=== PATIENT | male | born 1980 | race Hispanic/Latino ===

== ENCOUNTER → 2019-01-02 | Outpatient (CLI) | payer BC | END | disposition home or self-care (01) | LOC: RAH 11:23 | PROVIDERS: ATTEND Internal Medicine Gastroenterology | DX: R10.13 Epigastric pain (principal); R11.2 Nausea with vomiting, unspecified; R14.0 Abdominal distension (gaseous) | CPT/HCPCS: 78264; A9541 ==

== ENCOUNTER → 2019-02-06 | Outpatient (CLI) | payer BC | END | disposition home or self-care (01) | LOC: RAH 08:50 | PROVIDERS: ATTEND Internal Medicine Gastroenterology | DX: K21.9 Gastro-esophageal reflux disease without esophagitis (principal) | CPT/HCPCS: 74240 ==

== ENCOUNTER 2020-07-15 23:10 | Inpatient (IN) | payer BC, OTHER ==
[~2020-07-15] VITALS: Ht 177.2 cm; Wt 123.4 kg
[2020-07-16 00:51] LABS: BASOPHILS % (AUTO) 0.1 % (0.0-5.0); EOSINOPHILS % (AUTO) 1.7 % (0.0-8.0); HEMATOCRIT 45.8 % (42-54); LYMPHOCYTES % (AUTO) 16.3 % (21.0-51.0); MEAN CORPUSCULAR HEMOGLOBIN 30.3 pg (27.0-33.0); MEAN CORPUSCULAR HGB CONC 35.4 g/dL (32.0-36.0); MEAN CORPUSCULAR VOLUME 85.6 fL (79-99); MONOCYTES % (AUTO) 5.7 % (3.0-13.0); NEUTROPHILS % (AUTO) 75.8 % (40.0-77.0); PLATELET COUNT (AUTO) 188 K/uL (130-400); RED BLOOD CELL COUNT(AUTO) 5.35 MIL/uL (4.50-6.20); RED CELL DISTRIBUTION WIDTH 11.6 % (11.0-15.5); WHITE BLOOD COUNT (AUTO) 7.7 K/uL (4.8-10.8)
[2020-07-16] MEDS ORDERED: ACETAMINOPHEN EXTRA STRENGTH 500 MG TABLET ONE (00:57)
[2020-07-16 01:02] LABS: CREATININE 0.7 mg/dL (0.5-1.5); POTASSIUM 3.2 mmol/L (3.5-5.1)
[2020-07-16 01:06] LABS: ALBUMIN 2.9 g/dL (3.5-5.0); BILIRUBIN,TOTAL 0.6 mg/dL (0.2-1.0); TOTAL PROTEIN, SERUM 7.7 g/dL (6.0-8.3)
[2020-07-16 01:09] LABS: PARTIAL THROMBOPLASTIN TIME 31.3 SEC (26.3-35.5); PROTHROMBIN TIME 10.8 SEC (9.6-11.6)
[2020-07-16 01:13] LABS: B-TYPE NATRIURETIC PEPTIDE 9 pg/mL (0-100)
[2020-07-16] MEDS ORDERED: LEVOFLOXACIN 500 MG/D5W 100 ML 100 ML ONE (01:46)
[2020-07-16] MEDS ORDERED: LACTULOSE 20 GM/30 ML UDCUP PO PRN (06:30)
[2020-07-16] MEDS ORDERED: POTASSIUM CHLORIDE 10% ELIXIR 20 MEQ/15 ML UDCUP PO PRN (06:30)
[2020-07-16] MEDS ORDERED: ERGOCALCIFEROL (VITAMIN D2) 50,000 UNIT CAPSULE PO ONE (06:30)
[2020-07-16] MEDS ORDERED: NITROGLYCERIN 0.4 MG SL TAB SL PRN (06:30)
[2020-07-16] MEDS ORDERED: POTASSIUM CHLORIDE 10MEQ/100ML 100 ML IV PRN (06:30)
[2020-07-16] MEDS ORDERED: SODIUM CHLORIDE 0.9% 1000ML 1,000 ML IV SCH (06:30)
[2020-07-16] MEDS ORDERED: MORPHINE SULFATE 2 MG/ML 1ML SYG IV PRN (06:30)
[2020-07-16] MEDS ORDERED: ONDANSETRON HCL 4 MG/2 ML VIAL IV PRN (06:30)
[2020-07-16] MEDS ORDERED: ACETAMINOPHEN 325 MG TAB PO PRN (06:30)
[2020-07-16] MEDS ORDERED: LIDOCAINE HCL-MPF 1% 2ML VIAL IV PRN (06:30)
[2020-07-16 07:20] LABS: HEMOGLOBIN A1C 9.8 % (4.0-6.0)
[2020-07-16] MEDS ORDERED: PHARMACY COMMUNICATION MISC SCH ×3 (07:45→22:30)
[2020-07-16] MEDS ORDERED: METHYLPREDNISOLONE SOD SUCC 40MG/ML 1ML IVP SCH (09:00)
[2020-07-16] MEDS: DOXYCYCLINE HYCLATE 100 MG TABLET PO SCH ×2 (09:00→21:00)
[2020-07-16] MEDS: ENOXAPARIN SODIUM 40 MG/0.4 ML SYRINGE SQ SCH (09:00)
[2020-07-16] MEDS: ASCORBIC ACID 500 MG TAB PO SCH (09:00)
[2020-07-16] MEDS: ZINC SULFATE 220 CAPSULE PO SCH (09:00)
[2020-07-16] MEDS: FAMOTIDINE/PF 20 MG/2 ML VIAL IV SCH ×2 (09:00→21:00)
[2020-07-16] MEDS ORDERED: METHYLPREDNISOLONE SOD SUCC 40MG/ML 1ML ONE ×3 (09:36→21:42)
[2020-07-16] MEDS ORDERED: ERGOCALCIFEROL (VITAMIN D2) 50,000 UNIT CAPSULE ONE (09:36)
[2020-07-16] MEDS ORDERED: ASCORBIC ACID 500 MG TAB ONE (09:36)
[2020-07-16] MEDS ORDERED: DOXYCYCLINE HYCLATE 100 MG TABLET PO ONE ×2 (09:36→21:43)
[2020-07-16] MEDS ORDERED: ZINC SULFATE 220 CAPSULE ONE (09:36)
[2020-07-16] MEDS ORDERED: ENOXAPARIN SODIUM 40 MG/0.4 ML SYRINGE SQ ONE (09:37)
[2020-07-16] MEDS ORDERED: CEFTRIAXONE SODIUM 1 GM ONE ×2 (09:37→21:43)
[2020-07-16] MEDS ORDERED: FAMOTIDINE/PF 20 MG/2 ML VIAL IV ONE ×2 (09:37→21:43)
[2020-07-16] MEDS ORDERED: INSULIN HUMULIN R 100 UNIT/ML 3ML ONE ×3 (09:38→21:41)
[2020-07-16] MEDS ORDERED: SODIUM CHLORIDE 0.9% 50 ML IV ONE (09:40)
[2020-07-16] MEDS ORDERED: ALBUTEROL INHALER 90MCG/INH IH SCH (10:00)
[2020-07-16] MEDS ORDERED: ALBUTEROL SULFATE 0.083% 2.5 MG/3 ML INH IH SCH (10:00)
[2020-07-16] MEDS ORDERED: PHARMACY COMMUNICATION**REMDESIVIR ORDER MISC SCH (13:30)
[2020-07-16] MEDS ORDERED: INSULIN GLARGINE 100 UNITS/ML 10 ML VIAL SQ ONE (22:00)
[2020-07-17] MEDS ORDERED: ALBUTEROL INHALER 90MCG/INH IH ONE (05:49)
[2020-07-17 06:04] LABS: BASOPHILS % (AUTO) 0.1 % (0.0-5.0); HEMATOCRIT 42.7 % (42-54); LYMPHOCYTES % (AUTO) 9.4 % (21.0-51.0); MEAN CORPUSCULAR HEMOGLOBIN 30.2 pg (27.0-33.0); MEAN CORPUSCULAR HGB CONC 35.1 g/dL (32.0-36.0); MEAN CORPUSCULAR VOLUME 86.1 fL (79-99); MONOCYTES % (AUTO) 5.2 % (3.0-13.0); NEUTROPHILS % (AUTO) 84.6 % (40.0-77.0); PLATELET COUNT (AUTO) 237 K/uL (130-400); RED BLOOD CELL COUNT(AUTO) 4.96 MIL/uL (4.50-6.20); RED CELL DISTRIBUTION WIDTH 11.7 % (11.0-15.5); WHITE BLOOD COUNT (AUTO) 11.7 K/uL (4.8-10.8)
[2020-07-17 06:42] LABS: ALBUMIN 2.7 g/dL (3.5-5.0); BILIRUBIN,TOTAL 0.6 mg/dL (0.2-1.0); CREATININE 0.8 mg/dL (0.5-1.5); CRP QUANTITATIVE 106.5 mg/L (0.00-9.0); POTASSIUM 3.2 mmol/L (3.5-5.1); TOTAL PROTEIN, SERUM 7.2 g/dL (6.0-8.3)
[2020-07-17] MEDS: ZINC SULFATE 220 CAPSULE PO SCH (09:00)
[2020-07-17] MEDS: DEXAMETHASONE SOD PHOSPHATE 4 MG/ML 1ML VIAL IVP SCH (09:00)
[2020-07-17] MEDS: DOXYCYCLINE HYCLATE 100 MG TABLET PO SCH ×2 (09:00→21:35)
[2020-07-17] MEDS: ASCORBIC ACID 500 MG TAB PO SCH (09:00)
[2020-07-17] MEDS: INSULIN GLARGINE 100 UNITS/ML 10 ML VIAL SQ SCH (09:00)
[2020-07-17] MEDS: ENOXAPARIN SODIUM 40 MG/0.4 ML SYRINGE SQ SCH (09:00)
[2020-07-17] MEDS: FAMOTIDINE/PF 20 MG/2 ML VIAL IV SCH ×2 (09:00→21:35)
[2020-07-17] MEDS ORDERED: DOXYCYCLINE HYCLATE 100 MG TABLET PO ONE (09:35)
[2020-07-17] MEDS ORDERED: DEXAMETHASONE SOD PHOSPHATE 10MG/ML 1ML VIAL ONE (09:36)
[2020-07-17] MEDS ORDERED: ASCORBIC ACID 500 MG TAB ONE (09:36)
[2020-07-17] MEDS ORDERED: ENOXAPARIN SODIUM 40 MG/0.4 ML SYRINGE SQ ONE (09:37)
[2020-07-17] MEDS ORDERED: CEFTRIAXONE SODIUM 1 GM ONE (09:37)
[2020-07-17] MEDS ORDERED: FAMOTIDINE/PF 20 MG/2 ML VIAL IV ONE (09:37)
[2020-07-17] MEDS ORDERED: ZINC SULFATE 220 CAPSULE ONE (09:37)
[2020-07-17] MEDS ORDERED: POTASSIUM CHLORIDE 20 MEQ ERTAB PO ONE (09:37)
[2020-07-17] MEDS ORDERED: INSULIN HUMULIN R 100 UNIT/ML 3ML ONE (09:38)
[2020-07-17] MEDS ORDERED: SODIUM CHLORIDE 0.9% 50 ML IV ONE (09:39)
[2020-07-17 12:30] VITALS: BP 120/72
--- NOTE | 2020-07-17 13:30 | NUR ---
CM - IA UNABLE TO COMPLETE IA. NO ONE ANSWERING AT ANY NUMBER LISTED. CM TO FOLLOW UP
[2020-07-17] MEDS ORDERED: COMPOUND IV REFRIGERATED 1 EACH IVSOLN MISC PRN (15:00)
[2020-07-17] MEDS ORDERED: REMDESIVIR (EUA) 520 200 MG in SODIUM CHLORIDE 0.9% 250 ML IV ONE (15:00)
[2020-07-17 15:48] VITALS: BP 123/76
[2020-07-17] MEDS: INSULIN HUMULIN R 100 UNIT/ML 3ML SQ SCH ×2 (17:41→21:36)
[2020-07-17] MEDS: PHARMACY COMMUNICATION**REMDESIVIR MISC SCH ×3 (17:58→19:28)
[2020-07-17] MEDS: CEFTRIAXONE SODIUM 1 GM IVP SCH (18:00)
[2020-07-17] MEDS ORDERED: METF-446 PO (18:54)
[2020-07-17] MEDS: PHARMACY COMMUNICATION MISC SCH (19:28)
[2020-07-17 20:01] VITALS: BP 111/69
[2020-07-17 23:53] VITALS: BP 102/63
[2020-07-18] MEDS: GUAIFENESIN-DM 200/20 MG 10 ML PO PRN ×2 (01:44→20:35)
--- NOTE | 2020-07-18 02:41 | NUR ---
Patient Update Patient is in the bed resting peacefully. However, earlier during the day and night he has been non-compliant with wearing his oxygen and proning. He has been educated on the importance of being compliant. Now, he is on a non-rebreather to keep his O2 sats above 92%. All vitals are stable, and he is not showing any S/S of distress. He is being closely monitored.
[2020-07-18 03:44] VITALS: BP 110/60
[2020-07-18 05:08] LABS: BASOPHILS % (AUTO) 0.1 % (0.0-5.0); HEMATOCRIT 42.7 % (42-54); LYMPHOCYTES % (AUTO) 10.1 % (21.0-51.0); MEAN CORPUSCULAR HEMOGLOBIN 30.5 pg (27.0-33.0); MEAN CORPUSCULAR HGB CONC 34.9 g/dL (32.0-36.0); MEAN CORPUSCULAR VOLUME 87.5 fL (79-99); NEUTROPHILS % (AUTO) 82.2 % (40.0-77.0); PLATELET COUNT (AUTO) 326 K/uL (130-400); RED BLOOD CELL COUNT(AUTO) 4.88 MIL/uL (4.50-6.20); RED CELL DISTRIBUTION WIDTH 11.9 % (11.0-15.5)
[2020-07-18 05:26] LABS: ALBUMIN 2.5 g/dL (3.5-5.0); BILIRUBIN,TOTAL 0.4 mg/dL (0.2-1.0); CREATININE 0.9 mg/dL (0.5-1.5); CRP QUANTITATIVE 52.3 mg/L (0.00-9.0); POTASSIUM 3.1 mmol/L (3.5-5.1); TOTAL PROTEIN, SERUM 6.8 g/dL (6.0-8.3)
[2020-07-18] MEDS: CEFTRIAXONE SODIUM 1 GM IVP SCH ×2 (05:40→18:31)
[2020-07-18] MEDS: INSULIN HUMULIN R 100 UNIT/ML 3ML SQ SCH ×4 (05:41→20:35)
[2020-07-18 07:30] VITALS: BP 104/54
[2020-07-18] MEDS: INSULIN GLARGINE 100 UNITS/ML 10 ML VIAL SQ SCH (09:00)
--- NOTE | 2020-07-18 09:05 | NUR ---
Pt upgraded to 15L O2 via [facility] overnight due to pt being noncompliant and removing nasal cannula resulting in O2sats in the 70s per report. Upon rounding w/ the pulmonary MD pt found out of bed in restroom, O2 off. Pt continues to be noncompliant regardless of repeatedly being educated by day and bull fiddle player nurse. Pt room located close to the nurses station. No signs/symptoms of distress noted. Will continue to educate and monitor.
[2020-07-18] MEDS: FAMOTIDINE/PF 20 MG/2 ML VIAL IV SCH ×2 (10:47→20:34)
[2020-07-18] MEDS: ENOXAPARIN SODIUM 40 MG/0.4 ML SYRINGE SQ SCH (10:47)
[2020-07-18] MEDS: DEXAMETHASONE SOD PHOSPHATE 4 MG/ML 1ML VIAL IVP SCH (10:47)
[2020-07-18] MEDS: DOXYCYCLINE HYCLATE 100 MG TABLET PO SCH ×2 (10:47→20:34)
[2020-07-18] MEDS: ZINC SULFATE 220 CAPSULE PO SCH (10:47)
[2020-07-18] MEDS: ASCORBIC ACID 500 MG TAB PO SCH (10:47)
[2020-07-18] MEDS: PHARMACY COMMUNICATION**REMDESIVIR MISC SCH ×3 (11:00→20:47)
--- NOTE | 2020-07-18 11:04 | NUR ---
IA not completed. Phone numbers listed not answering phone call. CM to follow up.
[2020-07-18] MEDS: POTASSIUM CHLORIDE 20 MEQ ERTAB PO PRN ×3 (11:08→20:35)
[2020-07-18 12:00] VITALS: BP 110/73
[2020-07-18] MEDS: REMDESIVIR (EUA) 520 100 MG in SODIUM CHLORIDE 0.9% 250 ML IV SCH (13:22)
[2020-07-18 16:00] VITALS: BP 114/69
[2020-07-18 19:11] VITALS: BP 98/64
[2020-07-18] MEDS ORDERED: NITROGLYCERIN 1GM/1 INCH PACKET TD PRN (19:15)
[2020-07-18] MEDS ORDERED: MORPHINE SULFATE 2 MG/ML 1ML SYG IVP PRN (19:15)
[2020-07-18] MEDS ORDERED: ALPRAZOLAM 0.5 MG TABLET ONE (19:30)
[2020-07-18 20:04] LABS: CREATINE KINASE, TOTAL 106 U/L (21-232); MYOGLOBIN 88 ng/mL (10-92); TROPONIN I < 0.04 ng/mL (0.00-0.06)
[2020-07-18] MEDS ORDERED: ASPIRIN 325MG EC TAB 325 MG TABLET.DR PO SCH (20:15)
[2020-07-18] MEDS: ACETAMINOPHEN 325 MG TAB PO PRN (20:36)
[2020-07-18] MEDS ORDERED: ALPRAZOLAM 0.5 MG TABLET PO PRN (21:30)
[2020-07-18 23:26] VITALS: BP 107/61
[2020-07-19 03:42] VITALS: BP 128/66
[2020-07-19] MEDS: PHARMACY COMMUNICATION**REMDESIVIR MISC SCH ×4 (04:12→23:00)
[2020-07-19] MEDS: PHARMACY COMMUNICATION MISC SCH (04:12)
[2020-07-19 04:38] LABS: BASOPHILS % (AUTO) 0.3 % (0.0-5.0); HEMATOCRIT 42.9 % (42-54); LYMPHOCYTES % (AUTO) 16.3 % (21.0-51.0); MEAN CORPUSCULAR HEMOGLOBIN 30.3 pg (27.0-33.0); MEAN CORPUSCULAR HGB CONC 34.5 g/dL (32.0-36.0); MEAN CORPUSCULAR VOLUME 87.9 fL (79-99); NEUTROPHILS % (AUTO) 75.9 % (40.0-77.0); PLATELET COUNT (AUTO) 359 K/uL (130-400); RED BLOOD CELL COUNT(AUTO) 4.88 MIL/uL (4.50-6.20); RED CELL DISTRIBUTION WIDTH 11.9 % (11.0-15.5); WHITE BLOOD COUNT (AUTO) 10.9 K/uL (4.8-10.8)
[2020-07-19 04:45] LABS: ALBUMIN 2.4 g/dL (3.5-5.0); BILIRUBIN,TOTAL 0.4 mg/dL (0.2-1.0); CREATININE 0.8 mg/dL (0.5-1.5); CRP QUANTITATIVE 32.6 mg/L (0.00-9.0); MAGNESIUM 1.7 mg/dL (1.80-2.40); POTASSIUM 3.3 mmol/L (3.5-5.1); TOTAL PROTEIN, SERUM 6.7 g/dL (6.0-8.3)
[2020-07-19] MEDS: CEFTRIAXONE SODIUM 1 GM IVP SCH ×2 (05:48→17:47)
[2020-07-19] MEDS: INSULIN HUMULIN R 100 UNIT/ML 3ML SQ SCH ×7 (05:49→21:36)
[2020-07-19] MEDS: GUAIFENESIN-DM 200/20 MG 10 ML PO PRN (06:03)
[2020-07-19] MEDS: POTASSIUM CHLORIDE 20 MEQ ERTAB PO PRN (06:03)
[2020-07-19 07:28] LABS: ABG BASE EXCESS 1.9 mmol/L (-2.0-3.0); ABG HCO3 25.8 mmol/L (21.0-28.0); ABG OXYGEN SATURATION 90.6 % (95.0-99.0); ABG PCO2 38 mmHg (35-48)
[2020-07-19] MEDS: FAMOTIDINE/PF 20 MG/2 ML VIAL IV SCH ×2 (08:06→21:35)
[2020-07-19] MEDS: DEXAMETHASONE SOD PHOSPHATE 4 MG/ML 1ML VIAL IVP SCH (08:06)
[2020-07-19] MEDS: DOXYCYCLINE HYCLATE 100 MG TABLET PO SCH ×2 (08:07→21:35)
[2020-07-19] MEDS: ZINC SULFATE 220 CAPSULE PO SCH (08:07)
[2020-07-19] MEDS: ENOXAPARIN SODIUM 40 MG/0.4 ML SYRINGE SQ SCH (08:07)
[2020-07-19] MEDS: ASPIRIN 81MG TAB.CHEW PO SCH (08:07)
[2020-07-19] MEDS: ASCORBIC ACID 500 MG TAB PO SCH (08:07)
[2020-07-19] MEDS ORDERED: INSULIN GLARGINE 100 UNITS/ML 10 ML VIAL SQ SCH (09:00)
[2020-07-19 09:06] VITALS: BP 107/63
[2020-07-19 12:00] VITALS: BP 94/46
--- NOTE | 2020-07-19 12:59 | NUR ---
DC PLAN BEEN TRYING TO CALL MOTHER NO ANSWER SEVERAL ATTEMPS ON MULTIPLE DAYS. CALLED PATIENT ROOM NO ANSWER. SPOKE TO NURSE. PER NURSE PATIENT LIVES WITH MOTHER AND SISTER. INDEPENDENT ABLE TO PERFORM ADL'S. PATIENT HAS NO SERVICES OR DME'S. PLAN IS TO RETURN HOME WITH MOM. Addendum: 07/19/20 at 1310 by NAMRATA REN RN CM Amended: Links added.
[2020-07-19] MEDS: REMDESIVIR (EUA) 520 100 MG in SODIUM CHLORIDE 0.9% 250 ML IV SCH (13:00)
[2020-07-19] MEDS ORDERED: MAGNESIUM 2GM PREMIX 50ML 50 ML IV PRN (14:00)
[2020-07-19 16:00] VITALS: BP 125/69
[2020-07-19 19:00] VITALS: BP 123/72
--- NOTE | 2020-07-19 19:50 | NUR ---
Re: O2 compliance Pt noted in the bathroom at this time with O2 & pulse oximeter off on my rounds, claimed he is doing fine, denies SOB. Inform pt to please always keep his O2 on, stated he will put it on once back in bed.
--- NOTE | 2020-07-19 20:00 | NUR ---
PM Assessment Pt noted back in bed, VM at 15L & continuous pulse oximeter on, reading at 90% at this time. Routine assessment done, plan of care discuss, pt encourage to do prone position stated that its difficult for him as he is connected to a lot of wires. I told him that I will assist him for all this wires no to bother him but stated that it won't work as he moves a lot. Pt stated he will sleep on his side, inform pt he would benefit better in terms of oxygenation, still prefers to position himself side lying. Pt currently stated feels OK, denies SOB.
[2020-07-19 23:00] VITALS: BP 97/57
[2020-07-20 03:00] VITALS: BP 92/53
--- NOTE | 2020-07-20 03:28 | NUR ---
Re: Tele monitoring Received a call from central monitoring Jaki, reported pt off leads. I went to check on the pt noted in the bathroom, disconnected his telemetry, pulse ox monitoring & O2 off. Per pt stated he is doing OK. I spoke earlier with the RT Robert if we can start weaning O2 as pt noted saturating in the mid 90's, per Robert RT since when he check the pt his saturation in only in the low 90's will continue to monitor & will do weaning appropriately. Pt kept on VM at 15L.
[2020-07-20] MEDS: PHARMACY COMMUNICATION**REMDESIVIR MISC SCH ×4 (05:00→23:00)
[2020-07-20 05:22] LABS: BASOPHILS % (AUTO) 0.2 % (0.0-5.0); EOSINOPHILS % (AUTO) 0.2 % (0.0-8.0); LYMPHOCYTES % (AUTO) 17.6 % (21.0-51.0); MEAN CORPUSCULAR HEMOGLOBIN 30.1 pg (27.0-33.0); MEAN CORPUSCULAR HGB CONC 34.3 g/dL (32.0-36.0); MEAN CORPUSCULAR VOLUME 87.8 fL (79-99); MONOCYTES % (AUTO) 6.4 % (3.0-13.0); PLATELET COUNT (AUTO) 398 K/uL (130-400); RED BLOOD CELL COUNT(AUTO) 5.01 MIL/uL (4.50-6.20); RED CELL DISTRIBUTION WIDTH 11.7 % (11.0-15.5); WHITE BLOOD COUNT (AUTO) 10.6 K/uL (4.8-10.8)
[2020-07-20] MEDS: CEFTRIAXONE SODIUM 1 GM IVP SCH ×2 (05:40→18:39)
[2020-07-20] MEDS: INSULIN HUMULIN R 100 UNIT/ML 3ML SQ SCH ×7 (05:41→20:30)
[2020-07-20 05:44] LABS: ALBUMIN 2.4 g/dL (3.5-5.0); BILIRUBIN,DIRECT 0.1 mg/dL (0.0-0.3); BILIRUBIN,TOTAL 0.3 mg/dL (0.2-1.0); CREATININE 0.8 mg/dL (0.5-1.5); CRP QUANTITATIVE 17.6 mg/L (0.00-9.0); POTASSIUM 3.2 mmol/L (3.5-5.1); TOTAL PROTEIN, SERUM 6.5 g/dL (6.0-8.3)
[2020-07-20] MEDS: PHARMACY COMMUNICATION MISC SCH (06:00)
[2020-07-20] MEDS: POTASSIUM CHLORIDE 20 MEQ ERTAB PO PRN ×2 (06:53→11:41)
--- NOTE | 2020-07-20 07:01 | NUR ---
Re: Saturation Pt did proning position most of the time, saturation hold from 94% -96% on room air. Addendum: 07/20/20 at 0724 by NICHOLAS FIERRO RN RN Please disregard above documentation, intended for another pt.
[2020-07-20 08:00] VITALS: BP 116/64
[2020-07-20] MEDS: ENOXAPARIN SODIUM 40 MG/0.4 ML SYRINGE SQ SCH (09:00)
[2020-07-20] MEDS: DOXYCYCLINE HYCLATE 100 MG TABLET PO SCH ×2 (09:00→19:29)
[2020-07-20] MEDS: ASCORBIC ACID 500 MG TAB PO SCH (09:00)
[2020-07-20] MEDS: DEXAMETHASONE SOD PHOSPHATE 4 MG/ML 1ML VIAL IVP SCH (09:00)
[2020-07-20] MEDS: ASPIRIN 81MG TAB.CHEW PO SCH (09:00)
[2020-07-20] MEDS: FAMOTIDINE/PF 20 MG/2 ML VIAL IV SCH ×2 (09:00→19:29)
[2020-07-20] MEDS: INSULIN GLARGINE 100 UNITS/ML 10 ML VIAL SQ SCH (09:00)
[2020-07-20] MEDS: ZINC SULFATE 220 CAPSULE PO SCH (09:00)
[2020-07-20 12:00] VITALS: BP 101/51
[2020-07-20] MEDS: MAGNESIUM OXIDE 400 MG TABLET PO SCH (12:00)
[2020-07-20] MEDS: REMDESIVIR (EUA) 520 100 MG in SODIUM CHLORIDE 0.9% 250 ML IV SCH (13:00)
[2020-07-20 16:00] VITALS: BP 104/63
--- NOTE | 2020-07-20 18:15 | NUR ---
Pt in bed resting quietly w/ eyes closed throughout shift. aroused easily w/ verbal stimuli. Pt found w/ O2 and O2 sat monitor disconnected multiple times throughout shift. Pt reminded to wear O2 and keep O2 monitor connected. Pt stated he detaches leads on the tele monitor. pt also advised not to detach tele monitor. No acute distress noted at this time. Will continue to educate and monitor.
[2020-07-20 20:00] VITALS: BP 93/55
[2020-07-20] MEDS: ACETAMINOPHEN 325 MG TAB PO PRN (23:58)
[2020-07-21] VITALS: BP 98/46
[2020-07-21 03:37] VITALS: BP 92/50
[2020-07-21] MEDS: PHARMACY COMMUNICATION**REMDESIVIR MISC SCH ×4 (06:05→23:00)
[2020-07-21] MEDS: PHARMACY COMMUNICATION MISC SCH (06:05)
[2020-07-21 06:07] LABS: BASOPHILS % (AUTO) 0.1 % (0.0-5.0); LYMPHOCYTES % (AUTO) 14.5 % (21.0-51.0); MEAN CORPUSCULAR HEMOGLOBIN 30.4 pg (27.0-33.0); MEAN CORPUSCULAR HGB CONC 34.3 g/dL (32.0-36.0); MEAN CORPUSCULAR VOLUME 88.7 fL (79-99); MONOCYTES % (AUTO) 7.7 % (3.0-13.0); NEUTROPHILS % (AUTO) 75.9 % (40.0-77.0); PLATELET COUNT (AUTO) 413 K/uL (130-400); RED BLOOD CELL COUNT(AUTO) 4.96 MIL/uL (4.50-6.20); RED CELL DISTRIBUTION WIDTH 11.8 % (11.0-15.5); WHITE BLOOD COUNT (AUTO) 9.6 K/uL (4.8-10.8)
[2020-07-21 06:21] LABS: ALBUMIN 2.4 g/dL (3.5-5.0); BILIRUBIN,TOTAL 0.4 mg/dL (0.2-1.0); CREATININE 0.4 mg/dL (0.5-1.5); CRP QUANTITATIVE 17.1 mg/L (0.00-9.0); POTASSIUM 3.7 mmol/L (3.5-5.1); TOTAL PROTEIN, SERUM 6.5 g/dL (6.0-8.3)
[2020-07-21] MEDS: CEFTRIAXONE SODIUM 1 GM IVP SCH ×2 (06:55→18:23)
[2020-07-21] MEDS: INSULIN HUMULIN R 100 UNIT/ML 3ML SQ SCH ×7 (06:55→21:00)
[2020-07-21 08:00] VITALS: BP 107/58
[2020-07-21] MEDS: INSULIN GLARGINE 100 UNITS/ML 10 ML VIAL SQ SCH (09:06)
[2020-07-21] MEDS: ASPIRIN 81MG TAB.CHEW PO SCH (09:07)
[2020-07-21] MEDS: DOXYCYCLINE HYCLATE 100 MG TABLET PO SCH ×2 (09:07→20:24)
[2020-07-21] MEDS: ZINC SULFATE 220 CAPSULE PO SCH (09:08)
[2020-07-21] MEDS: DEXAMETHASONE SOD PHOSPHATE 4 MG/ML 1ML VIAL IVP SCH (09:08)
[2020-07-21] MEDS: ENOXAPARIN SODIUM 40 MG/0.4 ML SYRINGE SQ SCH (09:08)
[2020-07-21] MEDS: FAMOTIDINE/PF 20 MG/2 ML VIAL IV SCH ×2 (09:08→20:24)
[2020-07-21] MEDS: ASCORBIC ACID 500 MG TAB PO SCH (10:40)
[2020-07-21 12:00] VITALS: BP 117/68
[2020-07-21] MEDS: MAGNESIUM OXIDE 400 MG TABLET PO SCH (13:07)
[2020-07-21] MEDS: REMDESIVIR (EUA) 520 100 MG in SODIUM CHLORIDE 0.9% 250 ML IV SCH (13:17)
[2020-07-21 16:00] VITALS: BP 107/67
[2020-07-21 21:38] VITALS: BP 95/57
[2020-07-22 01:59] VITALS: BP 101/56
[2020-07-22] MEDS: PHARMACY COMMUNICATION MISC SCH (04:10)
[2020-07-22] MEDS: PHARMACY COMMUNICATION**REMDESIVIR MISC SCH ×4 (04:10→23:00)
[2020-07-22 04:42] VITALS: BP 105/66
[2020-07-22 05:18] LABS: BASOPHILS % (AUTO) 0.1 % (0.0-5.0); EOSINOPHILS % (AUTO) 1.3 % (0.0-8.0); HEMATOCRIT 44.6 % (42-54); LYMPHOCYTES % (AUTO) 13.1 % (21.0-51.0); MEAN CORPUSCULAR HEMOGLOBIN 30.2 pg (27.0-33.0); MEAN CORPUSCULAR HGB CONC 34.3 g/dL (32.0-36.0); MONOCYTES % (AUTO) 7.9 % (3.0-13.0); NEUTROPHILS % (AUTO) 76.8 % (40.0-77.0); PLATELET COUNT (AUTO) 450 K/uL (130-400); RED BLOOD CELL COUNT(AUTO) 5.07 MIL/uL (4.50-6.20); RED CELL DISTRIBUTION WIDTH 11.9 % (11.0-15.5)
[2020-07-22 05:43] LABS: ALBUMIN 2.4 g/dL (3.5-5.0); BILIRUBIN,TOTAL 0.5 mg/dL (0.2-1.0); CREATININE 0.6 mg/dL (0.5-1.5); CRP QUANTITATIVE 12.8 mg/L (0.00-9.0); POTASSIUM 3.5 mmol/L (3.5-5.1); TOTAL PROTEIN, SERUM 6.5 g/dL (6.0-8.3)
[2020-07-22] MEDS: CEFTRIAXONE SODIUM 1 GM IVP SCH ×2 (06:15→17:46)
[2020-07-22] MEDS: INSULIN HUMULIN R 100 UNIT/ML 3ML SQ SCH ×7 (06:15→21:00)
[2020-07-22 08:00] VITALS: BP 91/56
[2020-07-22] MEDS: ZINC SULFATE 220 CAPSULE PO SCH (09:36)
[2020-07-22] MEDS: FAMOTIDINE/PF 20 MG/2 ML VIAL IV SCH ×2 (09:36→22:53)
[2020-07-22] MEDS: ASPIRIN 81MG TAB.CHEW PO SCH (09:36)
[2020-07-22] MEDS: DOXYCYCLINE HYCLATE 100 MG TABLET PO SCH ×2 (09:36→22:53)
[2020-07-22] MEDS: DEXAMETHASONE SOD PHOSPHATE 4 MG/ML 1ML VIAL IVP SCH (09:36)
[2020-07-22] MEDS: ASCORBIC ACID 500 MG TAB PO SCH (09:36)
[2020-07-22] MEDS: ENOXAPARIN SODIUM 40 MG/0.4 ML SYRINGE SQ SCH (09:37)
[2020-07-22] MEDS: INSULIN GLARGINE 100 UNITS/ML 10 ML VIAL SQ SCH (09:38)
[2020-07-22] MEDS: MAGNESIUM OXIDE 400 MG TABLET PO SCH (12:31)
[2020-07-22 15:00] VITALS: BP 94/58
[2020-07-22 19:21] VITALS: BP 95/55
[2020-07-22 23:15] VITALS: BP 105/40
[2020-07-23 03:53] VITALS: BP 99/72
[2020-07-23] MEDS: INSULIN HUMULIN R 100 UNIT/ML 3ML SQ SCH ×4 (05:50→12:07)
[2020-07-23 06:20] LABS: BASOPHILS % (AUTO) 0.2 % (0.0-5.0); EOSINOPHILS % (AUTO) 1.2 % (0.0-8.0); HEMATOCRIT 46.3 % (42-54); LYMPHOCYTES % (AUTO) 11.7 % (21.0-51.0); MEAN CORPUSCULAR HEMOGLOBIN 30.4 pg (27.0-33.0); MEAN CORPUSCULAR HGB CONC 34.6 g/dL (32.0-36.0); MONOCYTES % (AUTO) 8.6 % (3.0-13.0); NEUTROPHILS % (AUTO) 77.2 % (40.0-77.0); PLATELET COUNT (AUTO) 447 K/uL (130-400); RED BLOOD CELL COUNT(AUTO) 5.26 MIL/uL (4.50-6.20); RED CELL DISTRIBUTION WIDTH 11.9 % (11.0-15.5); WHITE BLOOD COUNT (AUTO) 11.8 K/uL (4.8-10.8)
[2020-07-23 06:28] LABS: CREATININE 0.8 mg/dL (0.5-1.5)
[2020-07-23 07:00] VITALS: BP 96/52
[2020-07-23] MEDS: DEXAMETHASONE SOD PHOSPHATE 4 MG/ML 1ML VIAL IVP SCH (08:32)
[2020-07-23] MEDS: ENOXAPARIN SODIUM 40 MG/0.4 ML SYRINGE SQ SCH (08:32)
[2020-07-23] MEDS: FAMOTIDINE/PF 20 MG/2 ML VIAL IV SCH (08:32)
[2020-07-23] MEDS: ASCORBIC ACID 500 MG TAB PO SCH (08:32)
[2020-07-23] MEDS: ZINC SULFATE 220 CAPSULE PO SCH (08:32)
[2020-07-23] MEDS: ASPIRIN 81MG TAB.CHEW PO SCH (08:32)
[2020-07-23] MEDS: INSULIN GLARGINE 100 UNITS/ML 10 ML VIAL SQ SCH (08:35)
[2020-07-23 11:00] VITALS: BP 90/58
[2020-07-23] MEDS ORDERED: APIX2.5T PO (11:16)
[2020-07-23] MEDS ORDERED: DEXA6TAB PO (11:16)
[2020-07-23] MEDS: MAGNESIUM OXIDE 400 MG TABLET PO SCH (12:05)
--- NOTE | 2020-07-23 14:34 | NUR ---
DC PLAN GAVE NURSE INFO REGARDING [facility] PATIENT AND COUPON FOR ELIQUIS. PER NURSE PATIENT WILL BE GETTING EL[facility]QUIS FROM [facility] [employer]. Addendum: 07/23/20 at 1434 by NAMRATA REN RN CM Amended: Links added.
[2020-07-23] MEDS ORDERED: FAMOTIDINE 20MG TAB 20 MG TAB PO SCH (21:00)
[2020-07-24] MEDS ORDERED: DEXAMETHASONE 4 MG TAB PO SCH (09:00)
== END 2020-07-23 14:56 | disposition home or self-care (01) | DRG 177 ==
LOC: EDH 23:10 → EDHIP 07-16 02:46 → 2AH 07-17 11:12
PROVIDERS: ADMIT Internal Medicine; ATTEND Internal Medicine
PROC: XW13325 Transfusion of Convalescent Plasma (Nonautologous) into Peripheral Vein, Percutaneous Approach, New Technology Group 5 (ICD-10-PCS; 2020-07-16)
PROC: XW033E5 Introduction of Remdesivir Anti-infective into Peripheral Vein, Percutaneous Approach, New Technology Group 5 (ICD-10-PCS; principal; 2020-07-17)
DX: U07.1 COVID-19 (principal); J12.89 Other viral pneumonia; J96.01 Acute respiratory failure with hypoxia; E87.3 Alkalosis; D68.59 Other primary thrombophilia; R65.10 Systemic inflammatory response syndrome (SIRS) of non-infectious origin without acute organ dysfunction; E11.65 Type 2 diabetes mellitus with hyperglycemia; E66.01 Morbid (severe) obesity due to excess calories; Z60.2 Problems related to living alone; E86.9 Volume depletion, unspecified; E87.6 Hypokalemia; Z68.39 Body mass index [BMI] 39.0-39.9, adult; Z91.19 Patient's noncompliance with other medical treatment and regimen
CPT/HCPCS: 36415; 36600; 71045; 80048; 80053; 80076; 82550; 82728; 82803; 82948; 83036; 83605; 83615; 83735; 83874; 83880; 84145; 84484; 85025; 85378; 85610; 85730; 86140; 86850; 86900; 86901; 86927; 87426; 93005; 94760; G0378; J0696; J1100; J1650; J1815; J1956; J2920; J3490; J7050